=== PATIENT | male | born 1970 ===

== ENCOUNTER 2018-10-13 15:39 | Emergency (ER) | payer MEDICAID ==
[2018-10-13 15:43] VITALS: RESP 18; TEMP 98.2
[2018-10-13 15:45] VITALS: BMI 30.1
--- NOTE | 2018-10-13 16:45 | ED PDOC ---
Hyperglycemia/Hypoglycemia Time Seen by Provider: 10/13/18 15:54 Chief Complaint (Nursing): Headache Chief Complaint (Provider): Hyperglycemia History Per: Patient History/Exam Limitations: no limitations Onset/Duration Of Symptoms: Days (x1) Current Symptoms Are (Timing): Still Present : The patient does not have any of the infectious symptoms listed except for those marked. Additional Complaint(s): 48 year old male presents to the ED for evaluation of possible hyperglycemia. Patient reports headache localized to the back of her head, stomach discomfort, and lightheadedness for the past day associated with blurry vision and pressure to the eyes that started last night while driving. He says this feels similar to episodes of hyperglycemia in the past, however is compliant with his diabetes medication. Notes however, that he is non-compliant with his hypertension medication secondary to its burris. Otherwise, denies any trauma or injury. Past Medical History Reviewed: Historical Data, Nursing Documentation, Vital Signs Vital Signs: Last Vital Signs Temp 98.2 F 10/13/18 15:42 Pulse 93 H 10/13/18 15:42 Resp 18 10/13/18 15:42 BP 123/77 10/13/18 15:42 Pulse Ox 98 10/13/18 15:42 Primary Care Provider: FAMILY PROVIDER,RL (trying to make appointment with [facility]) - Medical History PMH: Diabetes, HTN Denies: Chronic Kidney Disease - Surgical History Surgical History: No Surg Hx - Family History Family History: States: Hypertension, Other Other Family History: diabetes - Social History Current smoker - smoking cessation education provided: No - Immunization History Hx Tetanus Toxoid Vaccination: No Hx Influenza Vaccination: No Hx Pneumococcal Vaccination: No - Home Medications Home Medications: Ambulatory Orders Medication Instructions Recorded MetFORMIN [glucoPHAGE] 1,000 mg PO BID #60 tab 09/30/18 - Allergies Allergies/Adverse Reactions: Allergies Allergy/AdvReac Type Severity Reaction Status Date / Time No Known Allergies Allergy Unverified 03/06/15 12:25 Review of Systems ROS Statement: Except As Marked, All Systems Reviewed And Found Negative (as per HPI) Eyes: Positive for: Other (blurry vision and pressure to eyes) Cardiovascular: Positive for: Light Headedness Gastrointestinal: Positive for: Other (stomach discomfort) Neurological: Positive for: Headache (back of head) Physical Exam - Reviewed Nursing Documentation Reviewed: Yes Vital Signs Reviewed: Yes - Physical Exam Appears: Positive for: Well, No Acute Distress Head Exam: Positive for: ATRAUMATIC, NORMOCEPHALIC Skin: Positive for: Warm, Dry Eye Exam: Positive for: EOMI, PERRL. Negative for: Nystagmus, Conjunctival injection ENT: Negative for: Pharyngeal Erythema, Tonsillar Exudate Neck: Positive for: Painless ROM, Supple Cardiovascular/Chest: Positive for: Regular Rate, Rhythm. Negative for: Murmur Gastrointestinal/Abdominal: Positive for: Soft. Negative for: Tenderness Back: Positive for: Normal Inspection. Negative for: Decreased ROM Extremity: Positive for: Normal ROM. Negative for: Deformity Lymphatic: Negative for: Adenopathy Neurological/Psych: Positive for: Awake, Alert, Oriented (x3), Cerebellar Tests (normal finger to nose testing). Negative for: Motor/Sensory Deficits - Laboratory Results Result Diagrams: 10/13/18 16:52 10/13/18 16:52 Urine dip results: Positive for: Blood (trace). Negative for: Leukocyte Esterase, Nitrate, Ketones, Glucose, Bilirubin, Protein - ECG O2 Sat by Pulse Oximetry: 98 (RA) Pulse Ox Interpretation: Normal Medical Decision Making Medical Decision Making: Time: 1621 Initial Impression: headache, blurry vision Initial Plan: --CT Head without contrast --Alcohol serum --CMP --UDS --Mg, Ph --U-dip --CBC with differential --Reevaluation 1640 Accucheck 120. Visual acuity results reviewed and patient is 20/20 in each eye when pinhole occluder is used. Accession No. : [id number] Patient Name / ID : KIMBERLY AGUILAR / [id number] Exam Date : 10/13/2018 16:34:13 ( Approved ) Study Comment : Sex / Age : M / 48Y Creator : Nikolai Barbour MD Dictator : Nikolai Barbour MD Railroad Switchman : Rover Tender : Nikolai Barbour MD Approver2 : Report Date : 10/13/2018 16:48:24 My Comment : Date of service: 10/13/2018 PROCEDURE: CT HEAD WITHOUT CONTRAST. HISTORY: Headache COMPARISON: No prior TECHNIQUE: Axial computed tomography images were obtained through the head/brain without intravenous contrast. Radiation dose: Total exam DLP = 830.26 mGy-cm. This CT exam was performed using one or more of the following dose reduction techniques: Automated exposure control, adjustment of the mA and/or kV according to patient size, and/or use of iterative reconstruction technique. FINDINGS: HEMORRHAGE: No acute parenchymal, subarachnoid or extra-axial hemorrhage. BRAIN: No mass effect or edema. No atrophy or chronic microvascular ischemic changes. VENTRICLES: No obstructive hydrocephalus. CALVARIUM: Unremarkable. PARANASAL SINUSES: Unremarkable as visualized. No significant inflammatory changes. MASTOID AIR CELLS: Unremarkable as visualized. No inflammatory changes. OTHER FINDINGS: None. IMPRESSION: No acute intracranial hemorrhage. Labs reviewed with no clinically significant abnormalities. 1800 Tonometer test: LEFT 27,21,24. RIGHT 22,24,22 Pt reporting blurry vision but has normal visual acuity on exam, normal IOP. Unremarkable physical exam. Stable for discharge with followup optometry or ophthalmology. Scribe Attestation: Documented by Tita Chandler, acting as a scribe for Elda Vance MD. Provider Scribe Attestation: All medical record entries made by the Scribe were at my direction and personally dictated by me. I have reviewed the chart and agree that the record accurately reflects my personal performance of the history, physical exam, medical decision making, and the department course for this patient. I have also personally directed, reviewed, and agree with the discharge instructions and disposition. Disposition - Clinical Impression Clinical Impression: Headache, Blurry vision, bilateral Counseled Patient/Family Regarding: Studies Performed, Diagnosis, Need For Followup - Disposition Referrals: Tessy Madera OD [[facility]] - Disposition: Routine/Home Disposition Time: 18:00 Condition: STABLE Additional Instructions: [facility]ITA [facility]ALU[facility]IONES Instructions: Headache, Adult (DC) Forms: [facility] ED School/Work Excuse Print Language: SYRIAC
--- NOTE | 2018-10-13 16:51 | CT ---
Date of service: 10/13/2018 PROCEDURE: CT HEAD WITHOUT CONTRAST. HISTORY: Headache COMPARISON: No prior TECHNIQUE: Axial computed tomography images were obtained through the head/brain without intravenous contrast. Radiation dose: Total exam DLP = 830.26 mGy-cm. This CT exam was performed using one or more of the following dose reduction techniques: Automated exposure control, adjustment of the mA and/or kV according to patient size, and/or use of iterative reconstruction technique. FINDINGS: HEMORRHAGE: No acute parenchymal, subarachnoid or extra-axial hemorrhage. BRAIN: No mass effect or edema. No atrophy or chronic microvascular ischemic changes. VENTRICLES: No obstructive hydrocephalus. CALVARIUM: Unremarkable. PARANASAL SINUSES: Unremarkable as visualized. No significant inflammatory changes. MASTOID AIR CELLS: Unremarkable as visualized. No inflammatory changes. OTHER FINDINGS: None. IMPRESSION: No acute intracranial hemorrhage.
[2018-10-13 17:06] LABS: BASO # 0.1 K/uL (0.0-0.2); BASO % 0.9 % (0.0-2.0); EOS # 0.3 K/uL (0.0-0.7); HEMOGLOBIN 14.3 g/dL (12.0-18.0); LYMPH # 1.8 K/uL (1.0-4.3); MEAN CELL VOLUME 91.5 fl (80.0-94.0); MEAN CORPUSCULAR HEMOGLOBIN 31.9 pg (27.0-31.0); MEAN CORPUSCULAR HGB CONC 34.9 g/dL (33.0-37.0); MEAN PLATELET VOLUME 10.4 fl (7.2-11.7); MONO # 0.7 K/uL (0.0-0.8); NEUT # 4.8 K/uL (1.8-7.0); NEUT % 63.1 % (50.0-75.0); NRBC % 0.2 % (0.0-0.0); RBC 4.47 Mil/uL (4.40-5.90); RED CELL DISTRIBUTION WIDTH 13.7 % (11.5-14.5); WHITE BLOOD COUNT 7.7 K/uL (4.8-10.8)
[2018-10-13 17:13] LABS: ALB/GLOB RATIO 1.3 (1.0-2.1); ALBUMIN 4.2 g/dL (3.5-5.0); BLOOD UREA NITROGEN 12 mg/dl (9-20); CALCIUM 8.8 mg/dL (8.4-10.2); GFR NON-AFRICAN AMERICAN > 60
[2018-10-13 17:16] LABS: ALT/SGPT 20 U/L (21-72); AST/SGOT 38 U/L (17-59)
[2018-10-13 17:26] LABS: BARBITURATES, UR NEGATIVE (NEGATIVE); BENZODIAZEPINES, UR NEGATIVE (NEGATIVE); OPIATES, UR NEGATIVE (NEGATIVE); PHENCYCLIDINE, UR NEGATIVE (NEGATIVE)
[2018-10-13] MEDS ORDERED: Tetracaine 0.5% Ophth 2 ML BOTTLE OU ONE (18:04)
[2018-10-13 18:45] VITALS: BP 116/67; PULSE 84
[2018-10-13 22:14] VITALS: O2SAT 98
== END 2018-10-13 18:17 | disposition home or self-care (01) ==
LOC: H.ER 15:39
DX: R51 Headache (principal); H53.8 Other visual disturbances; E11.9 Type 2 diabetes mellitus without complications; I10 Essential (primary) hypertension; Z79.84 Long term (current) use of oral hypoglycemic drugs; Z83.3 Family history of diabetes mellitus